=== PATIENT | female | born 1935 | race Caucasian/White ===

== ENCOUNTER 2016-06-08 10:07 | Emergency (ER) | payer MEDICARE ==
[2016-06-08 10:45] VITALS: BP 161/60
--- NOTE | 2016-06-08 11:47 | UC ---
Throat Pain/Nasal Koffi HPI - HPI Summary HPI Summary: complaint of swelling in her mouth had dinner 1 week ago and had a piece of meat stuck in between dentures and gum were surinder to get the meat out at home since thenher gum painful and swollen left side of face feels swollen denies fever and chills hasn't taken any medication for pain or swelling - History of Current Complaint Chief Complaint: UCGeneralIllness Stated Complaint: SORE MOUTH Time Seen by Provider: 06/08/16 11:37 Hx Obtained From: Patient - Allergies/Home Medications Allergies/Adverse Reactions: Allergies Allergy/AdvReac Type Severity Reaction Status Date / Time No Known Allergies Allergy Verified 06/08/16 10:40 PMH/Surg Hx/FS Hx/Imm Hx Previously Healthy: Yes Endocrine History Of: Denies: Diabetes, Thyroid Disease Cardiovascular History Of: Reports: Hypertension Denies: Cardiac Disorders Respiratory History Of: Denies: COPD - Surgical History Surgical History: Yes Surgery Procedure, Year, and Place: . appy - Family History Known Family History: Negative: Cardiac Disease, Hypertension, Diabetes - Social History Occupation: Retired Lives: With Family Alcohol Use: None Substance Use Type: None Smoking Status (MU): Former Smoker When Did the Patient Quit Smoking/Using Tobacco: 60 years ago Review of Systems Constitutional: Negative Skin: Negative Eyes: Negative ENT: Other - gum pain Respiratory: Negative Cardiovascular: Negative Gastrointestinal: Negative Genitourinary: Negative Motor: Negative Neurovascular: Negative Musculoskeletal: Negative Neurological: Negative Psychological: Negative All Other Systems Reviewed And Are Negative: Yes Physical Exam Triage Information Reviewed: Yes Appearance: No Pain Distress, Thin Vital Signs: Initial Vital Signs Temp 99.5 F 06/08/16 10:41 Pulse 97 06/08/16 10:41 Resp 18 06/08/16 10:41 BP 161/60 06/08/16 10:41 Pulse Ox 100 06/08/16 10:41 Vital Signs Reviewed: Yes Eyes: Positive: Conjunctiva Clear ENT: Positive: Pharynx normal, TMs normal, Other: - left side of face with some mild edema from lip to left nare. Negative: Nasal congestion, Nasal drainage Dental: Positive: Other: - left upper gum with 1cm ulceration -slight yellow exudate Neck: Positive: No Lymphadenopathy Respiratory: Positive: Lungs clear, Normal breath sounds, No respiratory distress, No accessory muscle use Cardiovascular: Positive: RRR, No Murmur, Pulses Normal Abdomen Description: Positive: Nontender, Soft Bowel Sounds: Positive: Present Neurological: Positive: Alert Psychological Exam: Normal Skin Exam: Normal Throat Pain/Nasal Course/Dx - Differential Dx/Diagnosis Differential Diagnosis/HQI/PQRI: Other - gingivitis Provider Diagnoses: gingivitis Discharge - Discharge Plan Condition: Stable Disposition: HOME Prescriptions: Amoxicillin/Clavulanate TAB* [Augmentin TAB 875*] 875 mg PO BID #20 tab Patient Education Materials: [facility] Mouth (ED) Referrals: Summer Moreno MD [Primary Care Provider] - Additional Instructions: Please take antibiotic as directed Increase fluids and rest Take acetaminophen for fever or pain Please review your discharge instructions. If your symptoms do not improve please call your primary care provider or return to urgent care. Your blood pressure is elevated. Please contact your primary care provider within 1 day -4 weeks for further evaluation.
== END 2016-06-08 12:13 | disposition home or self-care (01) ==
LOC: UCCORT 10:07
DX: K05.10 Chronic gingivitis, plaque induced (principal); I10 Essential (primary) hypertension; Z87.891 Personal history of nicotine dependence
CPT/HCPCS: 99212; G0463

== ENCOUNTER 2018-07-20 17:36 | Emergency (ER) | payer MEDICARE ==
[2018-07-20 18:01] VITALS: BP 160/72
[2018-07-20] MEDS ORDERED: Lidocaine 2% PF * 5 ML VIAL INJ ONE (18:29)
[2018-07-20] MEDS ORDERED: Tetan/Diph/Pertus SYR(Tdap)* 0.5 ML SYR(BOOSTRIX) use SYR IM ONE (18:31)
--- NOTE | 2018-07-20 21:37 | UC ---
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 unknown last tetanus shot. NO numbness, tinling, + movement of thumb. + bleeding, controlled now. 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 ?: No Onset/Duration: Sudden Onset, Lasting Minutes Severity Initially: Moderate Severity Currently: Moderate Pain Intensity: 0 Pain Scale Used: 0-10 Numeric Character Of Pain: Sharp Alleviating Factor(s): Rest Associated Signs And Symptoms: Positive: Other - bleeding - Allergies/Home Medications Allergies/Adverse Reactions: Allergies Allergy/AdvReac Type Severity Reaction Status Date / Time No Known Allergies Allergy Verified 07/20/18 18:01 Home Medications: Home Medications Fluticasone NASAL SPRAY 50MCG* [Flonase NASAL SPRAY 50MCG*] 2 spray BOTH NARES DAILY 07/20/18 [History Confirmed 07/20/18] PMH/Surg Hx/FS Hx/Imm Hx Previously Healthy: No - h/o PE, no difficulty with wound healing - Surgical History Surgical History: Yes Surgery Procedure, Year, and Place: . appy - Family History Known Family History: Positive: Non-Contributory Negative: Cardiac Disease, Hypertension, Diabetes - Social History Alcohol Use: None Substance Use Type: None Smoking Status (MU): Former Smoker When Did the Patient Quit Smoking/Using Tobacco: 60 years ago - Immunization History Most Recent Tetanus Shot: unknown Review of Systems All Other Systems Reviewed And Are Negative: Yes Constitutional: Positive: Negative Musculoskeletal: Positive: Arthralgia, Edema Is Patient Immunocompromised?: No Physical Exam Triage Information Reviewed: Yes Appearance: Well-Appearing, No Pain Distress, Well-Nourished Vital Signs: Initial Vital Signs Temp 98.7 F 07/20/18 17:56 Pulse 61 07/20/18 17:56 Resp 16 07/20/18 17:56 BP 160/72 07/20/18 17:56 Pulse Ox 97 07/20/18 17:56 Vital Signs Reviewed: Yes Eyes: Positive: Conjunctiva Clear, Other: - emoi Musculoskeletal: Positive: Strength Intact, ROM Intact, No Edema Neurological Exam: Normal Psychological Exam: Normal Skin: Positive: Other - laceration L thumb, ~ 2mm x 2mm x 1mm Procedures - Laceration/Wound Repair 1 Location: upper extremity - left thumb pad Description: Linear Anesthesia: Local, 1.0%, Lido Length, Depth and Shape: 2mm x 2mm x 1mm Betadine Prep?: No Irrigated w/ Saline (ccs): 50 Laceration/Wound Explored: clean Closure: Single Layer Suture Type: Nylon Number of Sutures: 2 Layer Closure?: No Sterile Dressing Applied?: No Hand/Wrist Course/Dx - Course Course Of Treatment: - Tetanus given - Keep dressing on thumb for 24 hours, may remove if feeling tight of bleeding through - change dressing daily or as needed if soiled - OK to wash hands, do not submerge in water- swimming, doing dishes, or do things with chemicals, etc. - Sutures to be removed in 7-10 days - Return with signs of infection- drainage, redness, increased pain, fever, decreased movement - TYlenol as needed for pain - Dress wound- for 2-3 days, put non-stick gauze over sutures followed by gauze and tape. After 2-3 days, may use band aid, Keep covered to revent sutures from catching. - Differential Dx/Diagnosis Differential Diagnosis/HQI/PQRI: Sprain, Strain Provider Diagnosis: Laceration of finger Discharge - Sign-Out/Discharge Documenting (check all that apply): Patient Departure All imaging exams completed and their final reports reviewed: No Studies - Discharge Plan Condition: Good Disposition: HOME Patient Education Materials: Care For Your Stitches (DC), Finger Laceration (ED ) Referrals: Summer Moreno MD [Primary Care Provider] - Additional Instructions: - Tetanus given - Keep dressing on thumb for 24 hours, may remove if feeling tight of bleeding through - change dressing daily or as needed if soiled - OK to wash hands, do not submerge in water- swimming, doing dishes, or do things with chemicals, etc. - Sutures to be removed in 7-10 days - Return with signs of infection- drainage, redness, increased pain, fever, decreased movement - TYlenol as needed for pain - Dress wound- for 2-3 days, put non-stick gauze over sutures followed by gauze and tape. After 2-3 days, may use band aid, Keep covered to revent sutures from catching. - Billing Disposition and Condition Condition: GOOD Disposition: Home
== END 2018-07-20 19:22 | disposition home or self-care (01) ==
LOC: UCCORT 17:36
DX: S61.012A Laceration without foreign body of left thumb without damage to nail, initial encounter (principal); W26.8XXA Contact with other sharp object(s), not elsewhere classified, initial encounter; Y93.89 Activity, other specified; Y92.019 Unspecified place in single-family (private) house as the place of occurrence of the external cause; Z87.891 Personal history of nicotine dependence
CPT/HCPCS: 12001; 90471; 90715; 99211; G0463

== ENCOUNTER 2018-11-06 10:12 | Emergency (ER) | payer MEDICARE | END 2018-11-06 10:25 | disposition left against medical advice (07) | LOC: UCCORT 10:12 | DX: S09.90XA Unspecified injury of head, initial encounter (principal); Z53.21 Procedure and treatment not carried out due to patient leaving prior to being seen by health care provider ==